=== PATIENT | male | born 1990 | race Caucasian/White ===

== ENCOUNTER 2020-08-15 08:56 | Emergency (ER) | payer MEDICAID ==
[~2020-08-15] VITALS: Ht 170.2 cm; Wt 69.1 kg
[2020-08-15 08:57] VITALS: BP 128/79
[2020-08-15] MEDS ORDERED: KETOROLAC 30 MG/ML VIAL IM ONE (09:30)
[2020-08-15] MEDS ORDERED: CYCLOBENZAPRINE 10 MG TAB PO ONE (09:30)
[2020-08-15 10:46] VITALS: BP 124/72
== END 2020-08-15 10:46 | disposition home or self-care (01) ==
LOC: MED 08:56 → EDSEX 08:56 → MED 10:46
DX: M54.6 Pain in thoracic spine (principal); J45.909 Unspecified asthma, uncomplicated
CPT/HCPCS: 72072; 96372; 99283; J1885